=== PATIENT | female | born 1985 | race Caucasian/White ===

== ENCOUNTER 2019-03-04 17:31 | Emergency (ER) | payer OTHER, SELFPAY ==
[2019-03-04] MEDS ORDERED: NA CHLORIDE 0.9% 1,000 ML ONE (17:50)
[2019-03-04] MEDS ORDERED: LORazepam 2 MG/ML VIAL ONE (17:50)
[2019-03-04] MEDS ORDERED: FENTANYL CITR 100 MCG/2 ML ONE (18:19)
[2019-03-04] MEDS ORDERED: PROMETHAZINE 25 MG/ML VIAL ONE (18:19)
[2019-03-04] MEDS ORDERED: INSULIN -REGULAR HUMAN 50 UNIT/0.5 ML ML ONE (18:20)
[2019-03-04 18:30] LABS: Absolute Lymphocytes (CBC) 1.7 K/uL (0.7-4.9); Basophils % 0.3 % (0-1.3); Hematocrit 43.2 % (36.0-45.0); Lymphocytes % 19.2 % (15.3-44.8); MPV 8.9 fL (7.6-11.3); RBC Red Blood Cell Count 4.91 M/uL (3.86-4.86)
[2019-03-04 18:44] LABS: ALT/SGPT 26 U/L (12-78); AST/SGOT 18 U/L (15-37); Albumin 4.3 g/dL (3.4-5.0); Alkaline Phosphatase 83 U/L (45-117); BUN Blood Urea Nitrogen 9 mg/dL (7-18); Bicarbonate 19 mmol/L (21-32); Bilirubin Direct 0.3 mg/dL (0-0.2); Bilirubin Total 1.6 mg/dL (0.2-1.0); Glucose Level 288 mg/dL (74-106); Lipase 121 U/L (73-393); Potassium 3.3 mmol/L (3.5-5.1); Protein, Total 7.2 g/dL (6.4-8.2); Sodium Level 138 mmol/L (136-145)
--- NOTE | 2019-03-04 19:09 | RAD REPORT ---
EXAM DESCRIPTION: RAD - Chest Single View - 03/04/2019 7:01 pm CLINICAL HISTORY: CHEST PAIN Chest pain. COMPARISON: <Comparisons> FINDINGS: Portable technique limits examination quality. The lungs are grossly clear. The heart is normal in size. No displaced fractures. IMPRESSION: No acute intrathoracic process suspected.
[2019-03-04] MEDS ORDERED: D5.45NS W/KCL 20MEQ 1,000 ML IV ONE (19:38)
[2019-03-04 20:38] LABS: Barbiturates NEGATIVE (NEGATIVE); Benzodiazepines NEGATIVE (NEGATIVE); Cocaine NEGATIVE (NEGATIVE); METHAMPHETAM NEGATIVE (NEGATIVE); Methadone NEGATIVE (NEGATIVE); Opiates NEGATIVE (NEGATIVE); Phencyclidine NEGATIVE (NEGATIVE); THC Cannibis POSITIVE (NEGATIVE)
[2019-03-04 20:48] LABS: Urine Blood NEGATIVE (NEG); Urine Glucose 1+ (NEG); Urine Protein NEGATIVE (NEG); Urine Specific Gravity 1.015 (1.005-1.030)
[2019-03-04 20:54] LABS: Urine Bacteria 20-50 /HPF (<20); Urine Culture Reflex Order NOT NEEDED; Urine RBC <5 /HPF (NONE SEEN)
[2019-03-04] MEDS ORDERED: DOXYCYCLINE 100 MG CAP PO ONE (21:20)
[2019-03-04 21:52] LABS: BUN Blood Urea Nitrogen 8 mg/dL (7-18); Bicarbonate 22 mmol/L (21-32); Glucose Level 71 mg/dL (74-106); Potassium 3.5 mmol/L (3.5-5.1); Sodium Level 144 mmol/L (136-145); Troponin (Emerg Dept Use Only) < 0.02 ng/mL (0.0-0.045)
--- NOTE | 2019-03-04 22:09 | ER ---
Nurse's Notes [facility] Name: Jessika Piña Age: 33 yrs Sex: Female : 1985 Arrival Date: 03/04/2019 Time: 17:33 Bed 19 Private MD: Diagnosis: Hyperglycemia, unspecified;Dehydration;Urinary tract infection, site not specified Presentation: 03/04 17:42 Presenting complaint: Patient states: "It started Monday night, I have been having aj1 really bad chest pains, like a constant dull pain but then it will spike and I'll get stabbing pain all the way through to my back and it goes down my arm and my arm gets hot and cold and everytime I get the sharp stabbing pain I feel like I'm going to pass out and I can't breathe". Transition of care: patient was not received from another setting of care. Onset of symptoms was 2018. Risk Assessment: Do you want to hurt yourself or someone else? Patient reports no desire to harm self or others. Initial Sepsis Screen: Does the patient meet any 2 criteria? HR > 90 bpm. No. Patient's initial sepsis screen is negative. Does the patient have a suspected source of infection? No. Patient's initial sepsis screen is negative. Care prior to arrival: None. 17:42 Method Of Arrival: Ambulatory aj 17:42 Acuity: CHEPE 3 aj1 Triage Assessment: 17:43 General: Appears uncomfortable, Behavior is cooperative, anxious. Pain: Complains of aj1 pain in chest Pain radiates to left arm Pain currently is 9 out of 10 on a pain scale. Neuro: Level of Consciousness is awake, alert, obeys commands. Cardiovascular: Patient's skin is warm and dry. Respiratory: Airway is patent Respiratory effort is even, unlabored, Respiratory pattern is regular, symmetrical. 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 - Social history:: Smoking status: Patient uses tobacco products, smokes one-half pack cigarettes per day. - Ebola Screening: : Patient denies travel to an Ebola-affected area in the 21 days before illness onset. Screenin:50 Abuse screen: Denies threats or abuse. Denies injuries from another. Nutritional sv screening: No deficits noted. Tuberculosis screening: No symptoms or risk factors identified. Fall Risk None identified. Assessment: 17:45 General: Appears uncomfortable, slender, well developed, Behavior is cooperative, sv appropriate for age, anxious. Pain: Complains of pain in back, chest, abdomen and left arm Pain currently is 9 out of 10 on a pain scale. Quality of pain is described as sharp, Pain began 2-3 days ago. Is intermittent, Noted to be grimacing, guarding, Also complains of nausea. Neuro: Level of Consciousness is awake, alert, obeys commands, Oriented to person, place, time, situation, Moves all extremities. Full function Gait is steady, Speech is normal. Cardiovascular: Patient's skin is warm and dry. Pulses are palpable in right radial artery and left radial artery Rhythm is sinus tachycardia. Respiratory: Airway is patent Respiratory effort is even, unlabored, Respiratory pattern is symmetrical, hyperventilation. Derm: Skin is pink, warm \\T\\ dry. Musculoskeletal: Range of motion: intact in all extremities. 18:34 Reassessment: Patient appears in no apparent distress at this time. Patient and/or family updated on plan of care and expected duration. Pain level reassessed. Patient is alert, oriented x 3, equal unlabored respirations, skin warm/dry/pink. 19:08 Reassessment: Patient appears in no apparent distress at this time. Patient and/or family updated on plan of care and expected duration. Pain level reassessed. Patient is alert, oriented x 3, equal unlabored respirations, skin warm/dry/pink. 20:15 Reassessment: Patient appears in no apparent distress at this time. No changes from previously documented assessment. Patient and/or family updated on plan of care and expected duration. Pain level reassessed. Patient is alert, oriented x 3, equal unlabored respirations, skin warm/dry/pink. 21:32 Reassessment: Patient appears in no apparent distress at this time. No changes from previously documented assessment. Patient and/or family updated on plan of care and expected duration. Pain level reassessed. Patient is alert, oriented x 3, equal unlabored respirations, skin warm/dry/pink. Redraw for Troponin and Lactate done. 22:30 Reassessment: Patient appears in no apparent distress at this time. No changes from previously documented assessment. Patient and/or family updated on plan of care and expected duration. Pain level reassessed. Patient is alert, oriented x 3, equal unlabored respirations, skin warm/dry/pink. Vital Signs: 17:43 BP 151 / 108; Pulse 102; Resp 20; Temp 98.6; Pulse Ox 100% on R/A; Weight 58.97 kg (R); aj1 Height 5 ft. 3 in. (160.02 cm) (R); Pain 9/10; 18:36 BP 133 / 88; Pulse 97; Resp 21; Pulse Ox 100% on R/A; sv 19:08 BP 105 / 77; Pulse 72; Resp 20; Pulse Ox 99% ; wh 20:15 BP 98 / 75; Pulse 73; Resp 18; Pulse Ox 99% ; wh 21:32 BP 123 / 70; Pulse 73; Resp 18; Pulse Ox 100% on R/A; wh 22:30 BP 98 / 66; Pulse 62; Resp 18; Pulse Ox 98% on R/A; wh 17:43 Body Mass Index 23.03 (58.97 kg, 160.02 cm) aj1 ED Course: 17:33 Patient arrived in ED. ag5 17:40 [facility]C [facility]. snw 17:40 Odin Restrepo MD is Attending Physician. snw 17:41 Linh Blevins RN is Primary Nurse. sv 17:42 Triage completed. aj1 17:43 Arm band placed on Patient placed in an exam room. aj1 17:45 Patient maintains SpO2 saturation greater than 95% on room air. sv 17:50 Patient has correct armband on for positive identification. Placed in gown. Bed in low sv position. Call light in reach. Side rails up X2. Adult w/ patient. ekg monitor tech on. Pulse ox on. NIBP on. Door closed. Warm blanket given. Head of bed elevated. 17:50 First set of blood cultures drawn by me. Inserted saline lock: 20 gauge in right sv forearm, using aseptic technique. Blood collected. Flushed right forearm with 5 ml normal saline. 18:00 Second set of blood cultures drawn by me. sv 18:43 EKG done, by ED staff, reviewed by Deloris KAUR. sv 18:59 X-ray(s) taken. sv 19:02 Chest Single View XRAY In Process Unspecified. EDMS 19:06 Report given to Missy MADISON. sv 19:16 Primary Nurse role handed off by Linh Blevins RN sv 19:40 Missy Krishnan is Primary Nurse. wh 22:41 No provider procedures requiring assistance completed. IV discontinued, intact, wh bleeding controlled, No redness/swelling at site. Administered Medications: 18:00 Drug: NS 0.9% 1000 ml Route: IV; Rate: 1 bolus; Site: right forearm; sv 22:43 Follow up: Response: No adverse reaction; IV Status: Completed infusion 18:00 Drug: Ativan 0.5 mg Route: IVP; Site: right forearm; sv 18:57 Follow up: Response: No adverse reaction sv 18:33 Drug: Phenergan 12.5 mg Route: IVP; Site: right forearm; sv 18:57 Follow up: Response: No adverse reaction sv 18:33 Drug: fentaNYL (PF) 25 mcg Route: IVP; Site: right forearm; sv 18:57 Follow up: Response: No adverse reaction; RASS: Restless (+1) sv 18:34 Drug: Insulin Regular Human 5 units {Co-Signature: aa5 (Renee So RN).} Route: sv IVP; Site: right forearm; 19:40 Follow up: Response: No adverse reaction; Blood sugar is lowered wh 19:40 Drug: D5-NS with KCL 20 mEq/L 1000 ml Route: IV; Rate: 200 ml/hr; Site: right forearm; wh 22:41 Follow up: Response: No adverse reaction; IV Status: Completed infusion 21:27 Drug: Doxycycline 100 mg Route: PO; 21:47 Follow up: Response: No adverse reaction Outcome: 22:09 Discharge ordered by . snw 22:42 Discharged to home ambulatory, with family. 22:42 Condition: stable 22:42 Discharge instructions given to patient, family, Instructed on discharge instructions, follow up and referral plans. medication usage, POC Demonstrated understanding of instructions, follow-up care, medications, POC Prescriptions given X 2. 22:42 Patient left the ED. Signatures: Dispatcher [employer] Kalyn Livingston RN RN aj1 Linh Blevins RN RN sv Deloris Rogel, INSOLE TACKER-C INSOLE TACKER-Csnw Missy Krishnan Mackenzie Rocha ag5 Renee So RN aa5
--- NOTE | 2019-03-04 22:10 | EDPHYS ---
Physician Documentation [facility] Name: Jessika Piña Age: 33 yrs Sex: Female : 1985 Arrival Date: 03/04/2019 Time: 17:33 Bed 19 Private MD: ED Physician Odin Restrepo HPI: 03/04 17:55 This 33 yrs old Female presents to ER via Ambulatory with complaints of Chest snw Pain. 17:55 Onset: The symptoms/episode began/occurred suddenly, 3 day(s) ago, and became worse and snw became persistent. Associated signs and symptoms: The patient has no apparent associated signs or symptoms. Modifying factors: The patient symptoms are alleviated by nothing. It is unknown whether or not the patient has had similar symptoms in the past. It is unknown whether or not the patient has recently seen a physician. hx of IDDM, FSBS prior to arrival stated at 150mg/dl. 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 - Social history:: Smoking status: Patient uses tobacco products, smokes one-half pack cigarettes per day. - Ebola Screening: : Patient denies travel to an Ebola-affected area in the 21 days before illness onset. ROS: 17:51 Constitutional: Negative for fever, chills, and weight loss, Eyes: Negative for injury, snw pain, redness, and discharge, ENT: Negative for injury, pain, and discharge, Neck: Negative for injury, pain, and swelling, Respiratory: Negative for shortness of breath, cough, wheezing, and pleuritic chest pain, Abdomen/GI: Negative for abdominal pain, nausea, vomiting, diarrhea, and constipation, Back: Negative for injury and pain, : Negative for injury, bleeding, discharge, and swelling, MS/Extremity: Negative for injury and deformity, Skin: Negative for injury, rash, and discoloration, Neuro: Negative for headache, weakness, numbness, tingling, and seizure, Psych: Negative for depression, anxiety, suicide ideation, homicidal ideation, and hallucinations. 17:51 Cardiovascular: Positive for chest pain, of the anterior aspect of left upper chest. Exam: 17:46 Head/Face: Normocephalic, atraumatic. Eyes: Pupils equal round and reactive to light, snw extra-ocular motions intact. Lids and lashes normal. Conjunctiva and sclera are non-icteric and not injected. Cornea within normal limits. Periorbital areas with no swelling, redness, or edema. ENT: Nares patent. No nasal discharge, no septal abnormalities noted. Tympanic membranes are normal and external auditory canals are clear. Oropharynx with no redness, swelling, or masses, exudates, or evidence of obstruction, uvula midline. Mucous membranes moist. Neck: Trachea midline, no thyromegaly or masses palpated, and no cervical lymphadenopathy. Supple, full range of motion without nuchal rigidity, or vertebral point tenderness. No Meningismus. Chest/axilla: Normal chest wall appearance and motion. Nontender with no deformity. No lesions are appreciated. 17:46 Abdomen/GI: Soft, non-tender, with normal bowel sounds. No distension or tympany. No guarding or rebound. No evidence of tenderness throughout. Back: No spinal tenderness. No costovertebral tenderness. Full range of motion. MS/ Extremity: Pulses equal, no cyanosis. Neurovascular intact. Full, normal range of motion. Neuro: Awake and alert, GCS 15, oriented to person, place, time, and situation. Cranial nerves II-XII grossly intact. Motor strength 5/5 in all extremities. Sensory grossly intact. Cerebellar exam normal. Normal gait. 17:46 Constitutional: The patient appears awake, anxious, frail, hyperventilating 17:46 Cardiovascular: Rate: tachycardic, Rhythm: regular, Edema: is not appreciated. 17:46 Respiratory: the patient does not display signs of respiratory distress, Respirations: shallow respirations, tachypnea, that is severe, Breath sounds: are clear throughout. 17:46 Skin: Appearance: normal except for affected area, + psoriasis. 17:46 Psych: Behavior/mood is anxious, Affect is animated. Vital Signs: 17:43 BP 151 / 108; Pulse 102; Resp 20; Temp 98.6; Pulse Ox 100% on R/A; Weight 58.97 kg (R); aj1 Height 5 ft. 3 in. (160.02 cm) (R); Pain 9/10; 18:36 BP 133 / 88; Pulse 97; Resp 21; Pulse Ox 100% on R/A; sv 19:08 BP 105 / 77; Pulse 72; Resp 20; Pulse Ox 99% ; wh 20:15 BP 98 / 75; Pulse 73; Resp 18; Pulse Ox 99% ; wh 21:32 BP 123 / 70; Pulse 73; Resp 18; Pulse Ox 100% on R/A; wh 22:30 BP 98 / 66; Pulse 62; Resp 18; Pulse Ox 98% on R/A; wh 17:43 Body Mass Index 23.03 (58.97 kg, 160.02 cm) aj1 MDM: 17:40 Patient medically screened. snw 22:11 Data reviewed: vital signs, nurses notes. Data interpreted: Pulse oximetry: on room air snw is 100 %. Interpretation: normal. Counseling: I had a detailed discussion with the patient and/or guardian regarding: the historical points, exam findings, and any diagnostic results supporting the discharge/admit diagnosis, lab results, radiology results, the need for outpatient follow up, to return to the emergency department if symptoms worsen or persist or if there are any questions or concerns that arise at home. Special discussion: Based on the patient's history, exam, and Dx evaluation, there is no indication for emergent intervention or inpatient Tx. It is understood by the patient/guardian that if the Sx's persist or worsen they need to return immediately for re-evaluation. Based on the history and exam findings, there is no indication for further emergent testing or inpatient evaluation. I discussed with the patient/guardian the need to see the primary care provider for further evaluation of the symptoms. 22:24 Response to treatment: the patient's symptoms have markedly improved after treatment, snw states she still has chest pain, no longer hyperventilating. Encouraged not to take anti-inflammatories on a regular basis for renal protection. Pt mad that the information given is not explanatory enough. Pt with negative trop, no longer has an anion gap. Denies resolution of chest pain. Encouraged to stop smoking.. 03/04 17:45 Order name: Basic Metabolic Panel; Complete Time: 18:46 snw 03/04 17:45 Order name: CBC with Diff; Complete Time: 18:42 snw 03/04 17:45 Order name: Creatinine for Radiology; Complete Time: 18:42 snw 03/04 17:45 Order name: Hepatic Function; Complete Time: 18:46 snw 03/04 17:45 Order name: Lipase; Complete Time: 18:46 snw 03/04 17:45 Order name: Blood Culture Adult (2) snw 03/04 17:45 Order name: Lactate; Complete Time: 19:23 snw 03/04 17:45 Order name: Acetone, Serum; Complete Time: 18:46 snw 03/04 17:46 Order name: Urine Culture snw 03/04 17:46 Order name: Urine Microscopic Only; Complete Time: 20:59 snw 03/04 17:51 Order name: UDS snw 03/04 17:52 Order name: Urine Drug Screen; Complete Time: 20:42 EDMS 03/04 18:13 Order name: Glucose, Ancillary Testing; Complete Time: 18:14 EDMS 03/04 19:12 Order name: Glucose, Ancillary Testing; Complete Time: 19:23 EDMS 03/04 17:45 Order name: Labs collected and sent; Complete Time: 18:34 snw 03/04 17:45 Order name: FSBS; Complete Time: 18:34 snw 09 18:36 Order name: Chest Single View XRAY; Complete Time: 19:23 sv 09 18:36 Order name: EKG; Complete Time: 18:37 sv 03/04 20:11 Order name: Urine Dipstick--Ancillary (enter results); Complete Time: 20:51 mw2 03/04 20:11 Order name: Urine --Ancillary (enter results); Complete Time: 20:51 mw2 09 20:37 Order name: Chem 7; Complete Time: 22:07 snw 03/04 20:37 Order name: Troponin (emerg Dept Use Only); Complete Time: 22:07 snw 03/04 21:58 Order name: Lactate Sepsis 2 HR Follow-up; Complete Time: 22:07 EDMS 09 17:46 Order name: Urine Test (obtain specimen); Complete Time: 20:05 snw 03/04 17:46 Order name: Urine Dipstick-Ancillary (obtain specimen); Complete Time: 20:05 snw 03/04 18:36 Order name: EKG - Nurse/Tech; Complete Time: 18:46 sv 12 18:49 Order name: FSBS; Complete Time: 19:40 snw 03/04 22:08 Order name: PO challenge; Complete Time: 22:14 snw Administered Medications: 18:00 Drug: NS 0.9% 1000 ml Route: IV; Rate: 1 bolus; Site: right forearm; sv 22:43 Follow up: Response: No adverse reaction; IV Status: Completed infusion wh 18:00 Drug: Ativan 0.5 mg Route: IVP; Site: right forearm; sv 18:57 Follow up: Response: No adverse reaction sv 18:33 Drug: Phenergan 12.5 mg Route: IVP; Site: right forearm; sv 18:57 Follow up: Response: No adverse reaction sv 18:33 Drug: fentaNYL (PF) 25 mcg Route: IVP; Site: right forearm; sv 18:57 Follow up: Response: No adverse reaction; RASS: Restless (+1) sv 18:34 Drug: Insulin Regular Human 5 units {Co-Signature: aa5 (Renee So RN).} Route: sv IVP; Site: right forearm; 19:40 Follow up: Response: No adverse reaction; Blood sugar is lowered 19:40 Drug: D5-NS with KCL 20 mEq/L 1000 ml Route: IV; Rate: 200 ml/hr; Site: right forearm; wh 22:41 Follow up: Response: No adverse reaction; IV Status: Completed infusion 21:27 Drug: Doxycycline 100 mg Route: PO; 21:47 Follow up: Response: No adverse reaction Disposition: 03/05 07:31 Co-signature as Attending Physician, Odin Restrepo MD I agree with the assessment and dylan plan of care. Disposition: 03/04/19 22:09 Discharged to Home. Impression: Hyperglycemia, unspecified, Dehydration, Urinary tract infection, site not specified. - Condition is Stable. - Discharge Instructions: Nonspecific Chest Pain, Diabetes and Sick Day Management, Hyperglycemia, Urinary Tract Infection, Adult, Blood Glucose Monitoring, Adult, Rehydration, Adult. - Prescriptions for Doxycycline Hyclate 100 mg Oral Tablet - take 1 tablet by ORAL route every 12 hours; 20 tablet. promethazine 25 mg Oral Tablet - take 1 tablet by ORAL route every 6 hours As needed; 20 tablet. - Work release form, Medication Reconciliation Form, Thank You Letter, Antibiotic Education, Prescription Opioid Use form. - Follow up: Emergency Department; When: As needed; Reason: Worsening of condition. Follow up: Private Physician; When: 1 - 2 days; Reason: Recheck today's complaints, Continuance of care, Re-evaluation by your physician. Signatures: Dispatcher [employer] EDKalyn Wilson RN RN aj1 Linh Blevins RN RN sv Anderson, Corey, MD MD cha Therrien, Shelly, WORKPLACE REHABILITATION OFFICER-C WORKPLACE REHABILITATION OFFICER-Csnw Eulogio Missy Renee So RN aa5 Corrections: (The following items were deleted from the chart) 03/04 22:42 22:09 03/04/2019 22:09 Discharged to Home. Impression: Hyperglycemia, unspecified; wh Dehydration; Urinary tract infection, site not specified. Condition is Stable. Forms are Medication Reconciliation Form, Thank You Letter, Antibiotic Education, Prescription Opioid Use. Follow up: Emergency Department; When: As needed; Reason: Worsening of condition. Follow up: Private Physician; When: 1 - 2 days; Reason: Recheck today's complaints, Continuance of care, Re-evaluation by your physician. snw
[2019-03-04 23:10] VITALS: TEMP 98.6
[2019-03-04 23:22] VITALS: BP 98/66; O2SAT 98
--- NOTE | 2019-03-05 05:28 | EKG ---
Test Date: 2019-03-04 Test Time: 18:43:44 Private Eye: COURTNEY MEASUREMENT RESULTS: Intervals: Rate: 90 MD: 132 QRSD: 68 QT: 406 QTc: 496 Bertrand: P: 51 MD: 132 QRS: 88 T: 73 INTERPRETIVE STATEMENTS: Normal sinus rhythm with sinus arrhythmia Normal ECG No previous ECG available for comparison Electronically Signed On 03-05-19 05:28:32 SPEECH LANGUAGE PATHOLOGIST ASSISTANT by Richard Nettles
== END 2019-03-04 22:42 | disposition home or self-care (01) ==
LOC: ER 17:31
DX: E11.65 Type 2 diabetes mellitus with hyperglycemia (principal); N39.0 Urinary tract infection, site not specified; E86.0 Dehydration; Z79.4 Long term (current) use of insulin; Z88.0 Allergy status to penicillin; Z91.010 Allergy to peanuts; Z91.030 Bee allergy status; F17.210 Nicotine dependence, cigarettes, uncomplicated
CPT/HCPCS: 36415; 71045; 80048; 80076; 80307; 81003; 81015; 81025; 82010; 82947; 83605; 83690; 84484; 85025; 87040; 87086; 87088; 93005; 96361; 96374; 96375; 99285; J2550; J3010; J7030

== ENCOUNTER 2023-05-14 02:39 | Inpatient (IN) | payer SELFPAY ==
[2023-05-14] MEDS ORDERED: NA CHLORIDE 0.9% 1,000 ML ONE ×3 (02:54→06:42)
[2023-05-14] MEDS ORDERED: HALOPERIDOL LACT 5 MG/ML INJ ONE (02:54)
[2023-05-14 03:25] LABS: Specific Gravity > 1.030 (1.005-1.030); Urine Bacteria None Seen /HPF (<20); Urine Bilirubin NEGATIVE (Negative); Urine Blood Negative (Negative); Urine Clarity Clear (Clear); Urine Color Colorless (Yellow); Urine Glucose 4+ (Over) (Negative); Urine Mucus Slight /HPF (None Seen); Urine Protein NEGATIVE (Negative); Urine RBC <5 /HPF (None Seen); Urine Urobilinogen Normal (Normal); Urine WBC Clump Rare /HPF (None Seen); Urine pH 5.5 (5.0-7.0)
[2023-05-14 03:39] LABS: Protime INR 0.79
[2023-05-14 03:47] LABS: ALT/SGPT 29 U/L (13-56); AST/SGOT 35 U/L (15-37); Albumin 3.1 g/dL (3.4-5.0); Alkaline Phosphatase 108 U/L (45-117); BUN Blood Urea Nitrogen 9 mg/dL (7-18); Barbiturates NEGATIVE (NEGATIVE); Benzodiazepines NEGATIVE (NEGATIVE); Bicarbonate 20 mEq/L (21-32); Bilirubin Direct 0.1 mg/dL (0-0.2); Bilirubin Indirect, Calculated 0.2 mg/dL (0.2-0.8); Bilirubin Total 0.3 mg/dL (0.2-1.0); Cocaine NEGATIVE (NEGATIVE); Glomerular Filtration Rate 118 ml/min (=/>90); Lipase 41 U/L (13-75); METHAMPHETAM NEGATIVE (NEGATIVE); Methadone NEGATIVE (NEGATIVE); Opiates NEGATIVE (NEGATIVE); Phencyclidine NEGATIVE (NEGATIVE); Potassium 4.3 mEq/L (3.5-5.1); Protein, Total 6.6 g/dL (6.4-8.2); Sodium Level 136 mEq/L (136-145); THC Cannibis NEGATIVE (NEGATIVE)
[2023-05-14 03:51] LABS: Absolute Lymphocytes (CBC) 1.6 K/uL (0.7-4.9); Hematocrit 37.8 % (36.0-45.0); Lymphocytes % 23.7 % (15.3-44.8); MCV 87.2 fL (80-100); MPV 8.5 fL (7.6-11.3); Platelets 262 thou/uL (152-406); RBC Red Blood Cell Count 4.34 M/uL (3.86-4.86)
[2023-05-14 03:57] LABS: Glucose Level 723 mg/dL (74-106)
[2023-05-14 04:42] LABS: Arterial Blood Carboxyhemoglob 2.2 % (0-1.5); Blood Gas Oxyhemoglobin 80.2 % (94-97); Blood O2 Saturation 83.5 % (92-98.5)
[2023-05-14] MEDS ORDERED: INSULIN REGULAR (HUMAN) 100 UNIT/ML ONE ×4 (04:45→17:40)
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
[2023-05-14] MEDS ORDERED: INSULIN -REGULAR HUMAN 100 UNIT in NA CHLORIDE 0.9% 100 ML IV SCH (05:30)
--- NOTE | 2023-05-14 06:12 | P.HP ---
Certification for Inpatient Patient admitted to: Inpatient With expected LOS: >2 Midnights Practitioner: I am a practitioner with admitting privileges, knowledge of patient current condition, hospital course, and medical plan of care. Services: Services provided to patient in accordance with Admission requirements found in Title 42 Section 412.3 of the Code of Federal Regulations Patient History Date of Service: 05/14/23 Reason for admission: Elevated blood sugar History of Present Illness: 37-year-old woman with a history of type 1 diabetes on Lantus insulin and lispro insulin was brought to the emergency department from police custody because of elevated blood sugar. Patient reported nausea. She also reported chronic abdominal pain. She denied any vomiting, denied any fever or chills or dysuria. She endorsed polyuria. Her blood sugar in the emergency department was severely elevated to 723. BMP did not suggest diabetic ketoacidosis, no ketones in the urine. Alcohol level significantly elevated to 156. Patient given IV normal saline and IV insulin. She is hospitalized for further management. - Past Medical/Surgical History -: Diabetes mellitus type 1 -: Chronic abdominal pain - Family History Father -: Diabetes - Social History Alcohol use: Yes CD- Drugs: No Place of Residence: Home Review of Systems Other: Except as documented, all other systems reviewed and negative. Physical Examination - Physical Exam General: In no apparent distress, Oriented x3, Confused (Mildly confused) HEENT: Atraumatic, Mucous membr. moist/pink, Sclerae nonicteric Neck: Supple, JVD not distended Respiratory: Clear to auscultation bilaterally, Normal air movement Cardiovascular: No edema, Regular rate/rhythm, Normal S1 S2, No murmurs Gastrointestinal: Normal bowel sounds, Soft and benign, Non-distended, No tenderness Musculoskeletal: No swelling, No tenderness Integumentary: No rashes, No cyanosis Neurological: Normal speech, Normal strength at 5/5 x4 extr, Cranial nerves 3-12 intact Lymphatics: No axilla or inguinal lymphadenopathy - Studies Laboratory Data (last 24 hrs) 05/14/23 05/14/23 05/14/23 03:13 03:13 03:13 WBC 6.60 Hgb 13.6 Hct 37.8 Plt Count 262 PT 8.7 L INR 0.79 APTT 27.5 Sodium 136 Potassium 4.3 BUN 9 Creatinine 0.64 Glucose 723 H* Total Bilirubin 0.3 AST 35 ALT 29 Alkaline Phosphatase 108 Lipase 41 Assessment and Plan - Problems (Diagnosis) (1) Type 1 diabetes mellitus with hyperosmolar hyperglycemic state ([facility]HS) Current Visit: Yes Status: Acute (2) Alcohol intoxication Current Visit: Yes Status: Acute (3) Chronic abdominal pain Current Visit: Yes Status: Acute - Plan Admit patient to the ICU. Start insulin drip per HHS protocol. Aggressively hydrated with IV normal saline. Monitor BMP, fingerstick glucose checks per DKA protocol. Monitor for alcohol withdrawal and initiate CIWA. Monitor and correct electrolytes as needed. - Advance Directives Does patient have a Living Will: No Does patient have a Durable POA for Healthcare: No
[2023-05-14 06:25] VITALS: BMI 21.2
[2023-05-14 06:32] LABS: Potassium 3.6 mEq/L (3.5-5.1)
[2023-05-14] MEDS: NA CHLORIDE 0.9% 1,000 ML IV SCH (06:48)
[2023-05-14 07:59] LABS: Specific Gravity > 1.030 (1.005-1.030)
[2023-05-14] MEDS ORDERED: GLUCAGON 1 MG/VIAL IM PRN (08:36)
[2023-05-14] MEDS ORDERED: D50W 25 GM/50 ML SYRINGE IV PRN (08:36)
[2023-05-14] MEDS ORDERED: INSULIN GLARGINE 100 UNIT/ML SQ ONE (08:55)
[2023-05-14] MEDS ORDERED: ENOXAPARIN 40 MG/0.4 ML SQ ONE (08:58)
[2023-05-14] MEDS: INSULIN GLARGINE 100 UNIT/ML SQ ONE (09:00)
[2023-05-14] MEDS: ENOXAPARIN 40 MG/0.4 ML SQ SCH (09:00)
[2023-05-14] MEDS: INSULIN REGULAR (HUMAN) 100 UNIT/ML SQ SCH ×2 (09:00→17:30)
[2023-05-14 10:05] LABS: Potassium 3.6 mEq/L (3.5-5.1)
--- NOTE | 2023-05-14 13:05 | P.PN ---
Date of Service: 05/14/23 Subjective: ROS: 10 point ROS as noted above, otherwise negative Physical Exam: GEN: Alert, oriented, NAD HEENT: Normal conjunctiva, sclera anicteric CV: Regular rate and rhythm, no edema Pulm: Nonlabored respirations on room air, clear bilaterally ABD: Soft, nontender, nondistended Neuro: Normal speech, normal affect vitals reviewed Problem List: Type 1 diabetes mellitus with hyperosmolar hyperglycemic state Alcohol intoxication Chronic abdominal pain CXR (05/14): negative for any acute cardiopulmonary findings xray Knee (05/14): no acute fracture or dislocation given IV NS bolus in ED Admitted to ICU Patient responded well to IV fluids. now dc'd (05/14) change to mild sliding scale insulin glucose significantly improved repeat labs in am PRN analgesics / antiemetics LFTs/lipase normal serum alcohol 156 Monitor for alcohol withdrawals. [facility] protocol VTE: Lovenox Code: Full Dispo: Home
[2023-05-14 13:32] VITALS: TEMP 98
[2023-05-14 14:39] LABS: Potassium 4.3 mEq/L (3.5-5.1)
[2023-05-14 16:28] VITALS: BP 123/84
[2023-05-14] MEDS: ONDANSETRON 4 MG/2 ML VIAL IV PRN (17:30)
[2023-05-14] MEDS ORDERED: ONDANSETRON 4 MG/2 ML VIAL ONE (17:39)
[2023-05-14 18:26] VITALS: O2SAT 97
--- NOTE | 2023-05-15 08:12 | P.DS ---
Admission Date: 05/14/23 Discharge Date: 05/14/23 Disposition: ROUTINE DISCHARGE Discharge Condition: GOOD Reason for Admission: Elevated blood sugar Brief History of Present Illness: 37yo F, PMH: type 1 diabetes on Lantus insulin and lispro insulin Patient was brought to the emergency department from police custody because of elevated blood sugar. Patient reported nausea. She also reported chronic abdominal pain. She denied any vomiting, denied any fever or chills or dysuria. She endorsed polyuria. Her blood sugar in the emergency department was severely elevated to 723. BMP did not suggest diabetic ketoacidosis, no ketones in the urine. Alcohol level significantly elevated to 156. Patient given IV normal saline and IV insulin. She is hospitalized for further management. Hospital Course: Problem List: Type 1 diabetes mellitus with hyperosmolar hyperglycemic state Alcohol intoxication Chronic abdominal pain Presented to ED from police custody due to elevated blood sugar. She was found to have a hyperosmolar hyperglycemic state with hyperglycemia to 723 with borderline anion gap, no ketones in urine, and alcohol level of 156. She states she took her insulin before going out for the night and drank alcohol and ate food out of her usual diet. She was found to be in hyperosmolar She was treated with insulin subcutaneously, her glucose levels quickly improved, her diet was advanced and was tolerated food throughout the day. Labs normalized, she was ambulating without issue, and felt back to her baseline. Discharged home to resume usual insulin regimen. No changes to medications on discharge. Follow up with PCP within 3-5 days. Physical Exam: GEN: Alert, oriented, NAD HEENT: Normal conjunctiva, sclera anicteric CV: Regular rate and rhythm, no edema Pulm: Nonlabored respirations on room air, clear bilaterally ABD: Soft, nontender, nondistended Neuro: Normal speech, normal affect Vital Signs/Physical Exam: Temp Pulse Resp BP Pulse Ox 98.0 F 90 17 123/84 98 05/14/23 16:00 05/14/23 16:00 05/14/23 16:00 05/14/23 16:00 05/14/23 16:00 Laboratory Data at Discharge: WBC 6.60 thou/uL (4.3-10.9) 05/14/23 03:13 Hgb 13.6 g/dL (12.0-15.0) 05/14/23 03:13 Hct 37.8 % (36.0-45.0) 05/14/23 03:13 Plt Count 262 thou/uL (152-406) 05/14/23 03:13 PT 8.7 SECONDS (9.5-12.5) L 05/14/23 03:13 INR 0.79 05/14/23 03:13 APTT 27.5 SECONDS (24.3-36.9) 05/14/23 03:13 Sodium 137 mEq/L (136-145) 05/14/23 14:20 Potassium 4.3 mEq/L (3.5-5.1) D 05/14/23 14:20 BUN 9 mg/dL (7-18) 05/14/23 14:20 Creatinine 0.50 mg/dL (0.55-1.02) L 05/14/23 14:20 Glucose 164 mg/dL (74-106) H 05/14/23 14:20 Total Bilirubin 0.3 mg/dL (0.2-1.0) 05/14/23 03:13 AST 35 U/L (15-37) 05/14/23 03:13 ALT 29 U/L (13-56) 05/14/23 03:13 Alkaline Phosphatase 108 U/L (45-117) 05/14/23 03:13 Lipase 41 U/L (13-75) 05/14/23 03:13 Home Medications: Hum Insulin NPH/Reg Insulin Hm [Humulin 70-30 Vial] See Rx Instructions .ROUTE .COMPLEX 05/14/23 Insulin Glargine,Hum.rec.anlog [Lantus] 25 units SQ DAILY 05/14/23 Physician Discharge Instructions: Presented to ED from police custody due to elevated blood sugar. She was found to have a hyperosmolar hyperglycemic state with hyperglycemia to 723 with borderline anion gap, no ketones in urine, and alcohol level of 156. She states she took her insulin before going out for the night and drank alcohol and ate food out of her usual diet. She was found to be in hyperosmolar She was treated with insulin subcutaneously, her glucose levels quickly improved, her diet was advanced and was tolerated food throughout the day. Labs normalized, she was ambulating without issue, and felt back to her baseline. Discharged home to resume usual insulin regimen. No changes to medications on discharge. Follow up with PCP within 3-5 days. Followup: NONE,NONE [Primary Care Provider] - Time spent managing pt's care (in minutes): 45
--- NOTE | 2023-05-15 10:42 | RAD REPORT ---
EXAM DESCRIPTION: RAD - Knee Right 3 View - 05/14/2023 3:06 am FINDINGS: Normal mineralization. No acute fracture or dislocation. Joint spaces are maintained. IMPRESSION: No acute bony finding. 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 The interpreting r adiologist is fully responsible for the content of the report.
--- NOTE | 2023-05-15 10:44 | RAD REPORT ---
EXAM DESCRIPTION: RAD - Chest Single View - 05/14/2023 3:06 am CLINICAL HISTORY: COUGH COMPARISON: None TECHNIQUE: Single AP view of the chest. FINDINGS: Lung volumes adequate. Cardiac silhouette is normal in size. No pneumothorax. No large pleural effusion. No focal consolidation. No acute bony finding. IMPRESSION: No evidence of acute cardiopulmonary disease. 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 The interpreting r adiologist is fully responsible for the content of the report.
--- NOTE | 2023-05-15 10:57 | EKG ---
Test Date: 2023-05-14 Test Time: 03:24:48 Regional Facilities Manager: TRINI MEASUREMENT RESULTS: Intervals: Rate: 97 WV: 146 QRSD: 82 QT: 354 QTc: 449 [facility]: P: 78 WV: 146 QRS: 91 T: 67 INTERPRETIVE STATEMENTS: Normal sinus rhythm Septal infarct, age undetermined Abnormal ECG Compared to ECG 03/04/2019 18:43:44 Myocardial infarct finding now present Sinus arrhythmia no longer present Electronically Signed On 05-15-23 10:55:46 STRAP BUCKLER MACHINE by Dwain Chester
== END 2023-05-14 17:45 | disposition home or self-care (01) | DRG 638 ==
LOC: ER 02:39 → ERHOLD 05:18
PROVIDERS: ADMIT Internal Medicine; ATTEND Hospitalist
DX: E10.69 Type 1 diabetes mellitus with other specified complication (principal); E87.0 Hyperosmolality and hypernatremia; E10.65 Type 1 diabetes mellitus with hyperglycemia; F10.129 Alcohol abuse with intoxication, unspecified; F17.210 Nicotine dependence, cigarettes, uncomplicated; Z79.4 Long term (current) use of insulin; Z88.0 Allergy status to penicillin; Z90.49 Acquired absence of other specified parts of digestive tract; Z91.018 Allergy to other foods; Z28.310 Unvaccinated for COVID-19; Y90.6 Blood alcohol level of 120-199 mg/100 ml
CPT/HCPCS: 36415; 36600; 71045; 80048; 80053; 80143; 80179; 80307; 81001; 81025; 82077; 82248; 82805; 82947; 83605; 83690; 85025; 85610; 85730; 93005; J1630; J1650; J1815; J2405; J7030

== ENCOUNTER 2025-01-01 11:55 | Emergency (ER) | payer OTHER, SELFPAY ==
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
[2025-01-01] MEDS ORDERED: ACETAMINOPHEN 500 MG TAB ONE (12:33)
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
[2025-01-01 13:06] VITALS: TEMP 98.1; O2SAT 100
[2025-01-01 13:08] VITALS: BP 119/80
== END 2025-01-01 12:41 | disposition home or self-care (01) ==
LOC: ER 11:55
DX: M25.512 Pain in left shoulder (principal); V49.59XA Passenger injured in collision with other motor vehicles in traffic accident, initial encounter
CPT/HCPCS: 99283